=== PATIENT | female | born 1955 | race Caucasian/White ===

== ENCOUNTER 2016-08-01 16:05 | Inpatient (IN) | payer OTHER ==
[~2016-08-01] VITALS: Ht 162.6 cm; Wt 62.8 kg
[~2016-08-01 16:05] MED LIST: COQ-50CA2; LISI2.5T3 PO; LORA1TAB PO; METO25TA3 PO; OMEG600C2 PO; THIA100T PO; VENL75TA PO; VITA250L PO
[2016-08-01 16:08] VITALS: BP 161/72; PULSE 91; RESP 18; O2SAT 98
--- NOTE | 2016-08-01 16:20 | PD ---
HPI Chief Complaint: Abnormal Results Time Seen by Provider: 16:12 Travel History International Travel<30 days: No Contact w/Intl Traveler<30days: No Traveled to known affect area: No History of Present Illness HPI 61-year-old female came to the emergency room with history of abdominal pain, intractable vomiting since early this morning. Patient was drinking last night and had 3 large vodka drinks. After which she sustained a fall and head injury. Because of her symptoms in the morning she decided to go to the emergency room. She was at the [facility] emergency room where they did a CAT scan of her abdomen pelvis and head and found out that she had small bowel obstruction along with subdural hematoma. They spoke with the lease purchase driver as well as the neurosurgeon in this hospital who accepted the case and patient was transferred. Currently she has a nasogastric tube and she is awake and alert. She is answering questions appropriately. She gave me this history. She has come with the paperwork as well as the CD for the imaging studies. The ICU physician Dr. Finley is down here as well seeing the patient. Vital signs are stable otherwise. [facility] Past Medical History Narrative Medical List of her past medical history as reviewed from the nursing note. Social History Alcohol Use: Yes Tobacco Use: Yes Allergies-Medications (Allergen,Severity, Reaction): Coded Allergies: Epinephrine (Verified Adverse Reaction, Unknown, rapid heart, 08/01/16) Comments List of her allergies reviewed from the nursing note. Reported Meds & Prescriptions Reported Meds & Active Scripts Active Reported Effexor (Venlafaxine HCl) 75 Mg Tab 75 Mg PO Q12H Lisinopril 2.5 Mg Tab 2.5 Mg PO DAILY Metoprolol Tartrate 25 Mg Tab 25 Mg PO BID Narrative Medication List of her home medications reviewed from the nursing note. Review of Systems Except as stated in HPI: all other systems reviewed are Neg Physical Exam Narrative GENERAL: Awake, alert, anxious, moderate distress SKIN: Warm and dry. HEAD: Atraumatic. Normocephalic. EYES: Pupils equal and round. No scleral icterus. No injection or drainage. ENT: No nasal bleeding or discharge. Mucous membranes pink and moist. Nasogastric tube from the right nostril NECK: Trachea midline. No JVD. CARDIOVASCULAR: Regular rate and rhythm. No murmur appreciated. RESPIRATORY: No accessory muscle use. Clear to auscultation. Breath sounds equal bilaterally. GASTROINTESTINAL: Abdomen soft, non-tender, nondistended. Hepatic and splenic margins not palpable. MUSCULOSKELETAL: No obvious deformities. No clubbing. No cyanosis. No edema. NEUROLOGICAL: Awake and alert. No obvious cranial nerve deficits. Motor grossly within normal limits. Normal speech. PSYCHIATRIC: Appropriate mood and affect; insight and judgment normal. Data Data Last Documented VS Vital Signs Date Time Temp Pulse Resp B/P Pulse Ox O2 Delivery O2 Flow Rate FiO2 08/01/16 16:08 91 18 161/72 98 Orders Complete Blood Count With Diff (08/01/16 16:21) Comprehensive Metabolic Panel (08/01/16 16:21) Prothrombin Time / Inr (Pt) (08/01/16 16:21) Chest, Single Ap (08/01/16 ) Ct Brain W/O Iv Contrast(Rout) (08/01/16 ) Admit Order (Ed Use Only) (08/01/16 16:23) MDM Medical Decision Making Medical Screen Exam Complete: Yes Emergency Medical Condition: Yes Medical Record Reviewed: Yes Differential Diagnosis Small bowel obstruction, subdural hematoma Narrative Course 4:17 PM patient will be admitted to the ICU. Dr. Finley is here seeing the patient. I just spoke with the neurosurgeon to let her know patient is arrived. Patient will be admitted to ICU. I will order another set of blood test for her since one was done at 5:45 AM. Procedures EKG Prior to Arrival: No Physician Communication Physician Communication Dr. Finley, Dr. Watson Diagnosis Primary Impression: Small bowel obstruction Additional Impressions: Subdural hematoma Fall Qualified Code: W19.XXXA - Fall, initial encounter Head injury Qualified Code: S09.90XA - Head injury, initial encounter Admitting Information Admitting Physician Requests: Admit Scripts Levetiracetam (Keppra)500 Mg Umh610 Mg PO Q12HR PRN (seizure prophylaxis) #60 TAB Ref 6 Prov:Marcell Watson 08/03/16 Yanelis Celaya MD Aug 01, 2016 16:20
[2016-08-01] MEDS ORDERED: VENL75TA PO (16:21)
[2016-08-01] MEDS ORDERED: LISI2.5T3 PO (16:21)
[2016-08-01] MEDS ORDERED: METO25TA3 PO (16:21)
[2016-08-01] MEDS ORDERED: ONDANSETRON HCL 4 MG/2 ML VIAL IV PRN (16:30)
[2016-08-01] MEDS ORDERED: MAGNESIUM SULFATE INJ 4 GM in SODIUM CHLORIDE 0.9% INJ 92 ML IV PRN (16:30)
[2016-08-01] MEDS ORDERED: DEXTROSE 50% IN WATER 50 ML VIAL(D50) IV PUSH PRN (16:30)
[2016-08-01] MEDS ORDERED: POTASSIUM PHOSPHATE MONOBASIC 500 MG TAB PO PRN (16:30)
[2016-08-01] MEDS ORDERED: MISCELLANEOUS NURSING INFORMATION XX SCH (16:30)
[2016-08-01] MEDS ORDERED: LORazepam 2 MG/ML VIAL IV PRN (16:30)
[2016-08-01] MEDS ORDERED: POTASSIUM CL 40 MEQ/30 ML LIQ UDC PO/TUBE PRN ×2 (16:30)
[2016-08-01] MEDS ORDERED: POTASSIUM CHLOR 20 MEQ PREMIX 100 ML IV PRN ×2 (16:30)
[2016-08-01] MEDS ORDERED: RESP: ALBUTEROL 2.5 MG/IPRATROPIUM 0.5 MG NEB (PRN) INH (16:30)
[2016-08-01] MEDS ORDERED: POTASSIUM PHOSPHATE INJ 30 MMOL in SODIUM CHLOR 0.9% 250 ML INJ 250 ML IV PRN (16:30)
[2016-08-01] MEDS ORDERED: MAGNESIUM OXIDE 400 MG TAB PO PRN (16:30)
[2016-08-01] MEDS ORDERED: HYDROmorphone HCL PF 1 MG/ML VIAL IV PRN (16:30)
[2016-08-01] MEDS ORDERED: CHLORHEXIDINE GLUCONATE 2 % 1 PACK (2 CLOTHS) TOP PRN (16:30)
[2016-08-01] MEDS ORDERED: SODIUM PHOSPHATE INJ 30 MMOL in SODIUM CHLOR 0.9% 250 ML INJ 240 ML IV PRN (16:30)
[2016-08-01] MEDS ORDERED: MAGNESIUM SULFATE INJ 2 GM in SODIUM CHLORIDE 0.9% INJ 96 ML IV PRN (16:30)
[2016-08-01] MEDS ORDERED: POTASSIUM PHOSPHATE MONOBASIC 500 MG TAB PO/TUBE PRN (16:30)
[2016-08-01] MEDS ORDERED: POTASSIUM CHLOR 40 MEQ PREMIX 100 ML IV PRN ×2 (16:30)
[2016-08-01] MEDS ORDERED: SODIUM CHLORIDE 0.9% FLUSH 5 ML FLUSH IV FLUSH PRN (16:30)
[2016-08-01 16:45] LABS: AUTOMATED NEUTROPHIL # 7.4 TH/MM3 (1.8-7.7); BASOPHIL % 0.3 % (0.0-2.0); HEMATOCRIT 36.5 % (35.0-46.0); LYMPH % 8.8 % (9.0-44.0); LYMPHOCYTE # 0.8 TH/MM3 (1.0-4.8); MEAN CELL VOLUME 103.7 FL (80.0-100.0); MEAN CORPUSCULAR HGB CONC 33.8 % (32.0-36.0); MONO % 5.6 % (0.0-8.0); NEUT % 85.3 % (16.0-70.0); PLATELET COUNT 135 TH/MM3 (150-450); RED BLOOD COUNT 3.52 MIL/MM3 (4.00-5.30); RED CELL DISTRIBUTION WIDTH 13.7 % (11.6-17.2); WHITE BLOOD COUNT 8.7 TH/MM3 (4.0-11.0)
[2016-08-01 16:56] LABS: HEMO FLAGS AUTO DIFF
[2016-08-01 17:02] LABS: INTERNATIONAL NORMALIZED RATIO 0.9 RATIO; PROTHROMBIN TIME - PATIENT 10.1 SEC (9.8-11.6)
--- NOTE | 2016-08-01 17:10 | HHI.HP ---
HPI Service Critical Care Medicine Primary Care Physician Unknown Admission Diagnosis small bowel obstruction, subdural hematoma Diagnosis: Chief Complaint: abdominal pain Travel History International Travel<30 Days: No Contact w/Intl Traveler <30 Da: No Traveled to Known Affected Are: No History of Present Illness This is a 61-year-old female with history of multiple abdominal surgeries as well as alcohol abuse who presents to an outside hospital with complaints of abdominal pain. She states that she had at least 3 large vodka drinks last night. She does remember hitting her head. When she woke up she drank some coffee and then had sudden onset nausea, vomiting, abdominal pain. She presented the emergency department where they noticed that she had a large scalp hematoma on the posterior side of her head. This prompted a noncontrasted CT scan of the head which demonstrated 11 mm left subdural hematoma without evidence of midline shift. In addition to this, CT abdomen and pelvis demonstrated dilated loops of small bowel with a noticeable transition point in the left upper quadrant suggestive of small bowel obstruction. She was emergently transferred to [facility] emergency Department for higher level care. I evaluate the patient immediately upon arrival to the emergency department. To me, she endorses mild abdominal pain and nausea. Denies chest pain, shortness of breath, fever, chills. She actually denies headache at this point. Denies blurred vision, vision changes. Denies ever losing consciousness last night. Does state that she had at least 3 drinks yesterday. Her EtOH level on arrival at outside hospitals was 211. She denies blood thinners. She has a history of A. fib status post ablation. She takes metoprolol for this. Critical care medicine was consulted to evaluate and manage her subdural hematoma and small bowel suction. I have discussed case with Dr. Watson and Dr. Albarado. Plan at this time is for conservative management. Review of Systems Constitutional: DENIES: Diaphoretic episodes, Fatigue, Fever, Chills, Dizziness Ears, nose, mouth, throat: DENIES: Ear Pain, Running Nose, Epistaxis Respiratory: DENIES: Cough, Wheezing, Hemoptysis, Sputum production, Shortness of breath Cardiovascular: DENIES: Chest pain, Palpitations, Syncope Gastrointestinal: COMPLAINS OF: Abdominal pain, Nausea, Vomiting, DENIES: Black stools, Bloody stools, Constipation, Diarrhea Neurologic: DENIES: Headache, Localized weakness Psychiatric: DENIES: Confusion Past Family Social History Allergies: Coded Allergies: Epinephrine (Verified Adverse Reaction, Unknown, rapid heart, 08/01/16) Past Medical History Atrial fibrillation Renal artery aneurysm Alcohol abuse Past Surgical History Appendectomy delivery Exploratory laparotomy with resection of renal artery aneurysm Reported Medications Metoprolol Does not take anticoagulation medication Active Ordered Medications See MAR Family History Reviewed and found to be noncontributory to the patient's acute illness Social History Episodically heavy drinker. At least 3 large drinks nightly when she is drinking Never smoked Denies drugs of abuse. Physical Exam Vital Signs Vital Signs Date Time Temp Pulse Resp B/P Pulse Ox O2 Delivery O2 Flow Rate FiO2 08/01/16 16:08 91 18 161/72 98 Physical Exam GENERAL: Middle-aged female, lying in bed, oriented 3 HEENT: Pupils 2 mm, equal, conjugate, round, reactive. Mucous membranes are dry. There is dried blood at the occiput. NECK: Trachea is midline. There is no JVD. NG tube in place CHEST: Equal chest rise. Clear to auscultation bilaterally. CARDIOVASCULAR: Normal rate, regular rhythm. No appreciable murmurs. ABDOMEN: Soft, mildly tender to palpation. Mildly distended. No guarding, rebound. MUSCULOSKELETAL: No peripheral edema. Distal pulses 2+. NEUROLOGICAL: RASS 0. GCS 15. CAM -. Cranial nerves II through XII grossly intact. Musculoskeletal strength 5 out of 5 bilateral upper and lower extremities. Sensation grossly intact. No gross focal motor or sensory deficits. Laboratory Outside hospital lab values are notable for an INR of 1, platelet of 147 Assessment and Plan Assessment and Plan Assessment: This is a 61-year-old female with history of alcohol abuse who presents after a fall with her chief complaint of abdominal pain. She was found to have a small bowel obstruction as well as a left subdural hematoma without evidence of midline shift. She is neurologically intact. I agree with admission to the ICU for close monitoring. Clearly both problems could become easily life-threatening, and the combination of these problems if worsening could be catastrophic. For now we will admit to the ICU, with every hour neuro checks. We will repeat her CT head to eval for interval change since the initial CT scan was done at 8 AM this morning. Active problems: Acute Left subdural hematoma Small bowel obstruction Plan: Every hour neuro checks Interval head CT Holding pharmacologic DVT prophylaxis Hold long-acting sedating meds Dilaudid 0.5 IV for pain when necessary Dr. Watson neurosurgery following Strict nothing by mouth NG tube to low intermittent wall suction Maintenance fluids normal saline at 84 cc an hour General surgery, Dr. Albarado following Daily CBC, BMP Hold home meds by mouth. Metoprolol 5 g IV every 6 hours scheduled Protonix for GI prophylaxis Distal: Admit to the ICU. She remains critically ill with high concern for acute decompensation This patient remains critically ill with one or more organ systems which are or may become a threat to life. I have spent in excess of 44 minutes discontinuously in the care and management of this patient. This time is exclusive of procedures, and includes, but is not limited to, evaluation of the patient, review of the medical record, discussions with family, consultants, nursing staff, or respiratory therapy, and documentation in the medical record. Code Status Full Code Discussed Condition With Dr. Watson, Tigre Rosales MD Aug 01, 2016 17:10
--- NOTE | 2016-08-01 17:25 | RADRPT ---
EXAM DATE/TIME: 08/01/2016 16:33 [facility] COMPARISON: No previous studies available for comparison. INDICATIONS : Weakness. NG tube placement. MEDICAL HISTORY : None. SURGICAL HISTORY : None. ENCOUNTER: Initial ACUITY: 1 day PAIN SCORE: 4/10 LOCATION: Bilateral chest FINDINGS: A single view of the chest demonstrates the lungs to be symmetrically aerated without evidence of mas s, infiltrate or effusion. The cardiomediastinal contours are unremarkable. Osseous structures are intact. CONCLUSION: 1. No active disease. NG coiled in stomach. Antonino Triplett MD on August 01, 2016 at 17:24 Board Certified Radiologist. This report was verified electronically.
[2016-08-01 17:32] LABS: PLATELET ESTIMATE SMEAR NORMAL (NORMAL); PLATELET MORPHOLOGY NORMAL (NORMAL); SCAN/DIFF AUTO DIFF CONFIRMED
--- NOTE | 2016-08-01 17:33 | RADRPT ---
EXAM DATE/TIME: 08/01/2016 17:19 [facility] COMPARISON: No previous studies available for comparison. INDICATIONS : Subdural hematoma seen on prior study at [facility]; evaluate for interval change. RADIATION DOSE: 56.35 CTDIvol (mGy) MEDICAL HISTORY : Hypertension. SURGICAL HISTORY : Cardiac ablation. ENCOUNTER: Initial ACUITY: 1 day PAIN SCALE: 4/10 LOCATION: cranial TECHNIQUE: Multiple contiguous axial images were obtained of the head. Using automated exposure control and adj ustment of the mA and/or kV according to patient size, radiation dose was kept as low as reasonably a chievable to obtain optimal diagnostic quality images. FINDINGS: Prior studies not available. There is a 12 mm subdural hematoma in the left parietal region. There is also a small amount of subdural hemorrhage in the interhemispheric region and extending over the lef t tentorium. There is some localized effacement of sulci. No significant midline shift. No hydrocepha natasha. No recent infarction identified. CONCLUSION: 1. Left parietal subdural hematoma measuring up to 12 mm in thickness with local effacement of the hoyos lci. No significant midline shift. Trace hemorrhage in the interhemispheric fissure and left tentoria l region. Prior study not available. Antonino Triplett MD on August 01, 2016 at 17:29 Board Certified Radiologist. This report was verified electronically.
[2016-08-01 17:45] VITALS: PULSE 85
[2016-08-01] MEDS: METOPROLOL TARTRATE 5 MG/5 ML VIAL IV PUSH SCH ×2 (17:52→23:51)
[2016-08-01 18:00] VITALS: BP 159/85; PULSE 85; RESP 17; TEMP 97.8; O2SAT 96
[2016-08-01] MEDS: INSULIN NovoLIN REGULAR SUPPLEMENTAL SCALE SQ SCH ×2 (18:00→23:51)
[2016-08-01] MEDS: SODIUM CHLOR 0.9% 1000 ML INJ 1,000 ML IV SCH (18:05)
--- NOTE | 2016-08-01 18:17 | PD.CONS ---
HPI Service Neurosurgery Consult Requested By Mapping Analyst Reason for Consult Left parietal acute SDH Primary Care Physician Unknown History of Present Illness 61 yr old lady fell backwards yesterday while walking her dogs and hit the back of her head. She had several cocktails and might have been unsteady. She denies LOC but she had some pain in the back of the head. She presented today to the ED in [place] with abdominal pain. A ct of the abdomen showed a small bowel obstruction. The CT of the head showed an acute small SDH. She is alert and at her neurologic baseline. GCS is 15 Review of Systems Constitutional: DENIES: Diaphoretic episodes, Fatigue, Fever, Weight gain, Weight loss, Chills, Dizziness, Change in appetite, Night Sweats Endocrine: DENIES: Abnorml menstrual pattern, Heat/cold intolerance, Polydipsia , Polyuria, Polyphagia Eyes: DENIES: Blurred vision, Diplopia, Eye inflammation, Eye pain, Vision loss , Photosensitivity, Double Vision Ears, nose, mouth, throat: DENIES: Tinnitus, Hearing loss, Vertigo, Nasal discharge, Oral lesions, Throat pain, Hoarseness, Ear Pain, Running Nose, Epistaxis, Sinus Pain, Toothache, Odynophagia Respiratory: DENIES: Apneas, Cough, Snoring, Wheezing, Hemoptysis, Sputum production, Shortness of breath Cardiovascular: DENIES: Chest pain, Palpitations, Syncope, Dyspnea on Exertion , PND, Lower Extremity Edema, Orthopnea, Claudication Gastrointestinal: COMPLAINS OF: Abdominal pain Genitourinary: DENIES: Abnormal vaginal bleeding, Dysmenorrhea, Dyspareunia, Sexual dysfunction, Urinary frequency, Urinary incontinence, Urgency, Hematuria , Dysuria, Nocturia, Vaginal discharge Musculoskeletal: DENIES: Joint pain, Muscle aches, Stiffness, Joint Swelling, Back pain, Neck pain Integumentary: DENIES: Abnormal pigmentation, Pruritus, Rash, Nail changes, Breast masses, Breast skin changes, Nipple discharge Hematologic/lymphatic: COMPLAINS OF: Bruising Immunologic/allergic: DENIES: Eczema, Urticaria Neurologic: DENIES: Abnormal gait, Headache, Localized weakness, Paresthesias, Seizures, Speech Problems, Tremor, Poor Balance Psychiatric: COMPLAINS OF: Depression Past Family Social History Allergies: Coded Allergies: Epinephrine (Verified Adverse Reaction, Unknown, rapid heart, 08/01/16) Past Medical History HTN 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 , responded well to effexor Renal art aneurysm, bled in 2013 and was repaired in [place] Past Surgical History Abdominal artery repair Reported Medications Reported Meds & Active Scripts Active Reported Effexor (Venlafaxine HCl) 75 Mg Tab 75 Mg PO Q12H Lisinopril 2.5 Mg Tab 2.5 Mg PO DAILY Metoprolol Tartrate 25 Mg Tab 25 Mg PO BID Family History HTN Social History , 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 Pupils 2mm equal, face symmetric, speech fluent, NG in place No pronator drift, motor 5/5 in both upper extremities and lower extremities, no dysmetria, no tone abnormality Reflexes are normal in the bic/tri/patella, no Mcrae sign, no Babinski Laboratory Laboratory Tests Test 08/01/16 16:26 White Blood Count 8.7 Red Blood Count 3.52 Hemoglobin 12.3 Hematocrit 36.5 Mean Corpuscular Volume 103.7 Mean Corpuscular Hemoglobin 35.0 Mean Corpuscular Hemoglobin 33.8 Concent Red Cell Distribution Width 13.7 Platelet Count 135 Mean Platelet Volume 9.8 Neutrophils (%) (Auto) 85.3 Lymphocytes (%) (Auto) 8.8 Monocytes (%) (Auto) 5.6 Eosinophils (%) (Auto) 0.0 Basophils (%) (Auto) 0.3 Neutrophils # (Auto) 7.4 Lymphocytes # (Auto) 0.8 Monocytes # (Auto) 0.5 Eosinophils # (Auto) 0.0 Basophils # (Auto) 0.0 CBC Comment AUTO DIFF Differential Comment AUTO DIFF CONFIRMED Platelet Estimate NORMAL Platelet Morphology Comment NORMAL Prothrombin Time 10.1 Prothromb Time International 0.9 Ratio Result Diagram: 08/01/16 1626 Imaging Last Impressions Head CT 08/01/16 0000 Signed Impressions: Service Date/Time: Monday, August 01, 2016 17:19 - CONCLUSION: 1. Left parietal subdural hematoma measuring up to 12 mm in thickness with local effacement of the sulci. No significant midline shift. Trace hemorrhage in the interhemispheric fissure and left tentorial region. Prior study not available. Antonino Triplett MD Chest X-Ray 08/01/16 0000 Signed Impressions: Service Date/Time: Monday, August 01, 2016 16:33 - CONCLUSION: 1. No active disease. NG coiled in stomach. Antonino Triplett MD Assessment and Plan Diagnosis: (1) Subdural hematoma Plan: Acute small extra axial collection in the parietal region, at most 13 mm with local mass effect and extension along the falx. Seizure prophylaxis, dvt prophylaxis and pud prophylaxis is per ICU protocol. We will repeat the head CT in the am and follow her radiologic and clinical exam. ICD Code: I62.00 Marcell Watson Aug 01, 2016 18:17
[2016-08-01] MEDS: levETIRAcetam INJ 500 MG in SODIUM CHLORIDE 0.9% INJ 100 ML IV SCH (19:45)
[2016-08-01] MEDS: SODIUM CHLORIDE 0.9% FLUSH 5 ML FLUSH IV FLUSH SCH (19:46)
[2016-08-01] MEDS: hydrALAZINE HCL 20 MG/ML VIAL IV PUSH SCH ×2 (19:46→22:20)
[2016-08-01 20:00] VITALS: BP 165/57; PULSE 88; PULSE 95; RESP 19; TEMP 97.8; O2SAT 97
[2016-08-02] VITALS (9 sets, daily range): BP systolic 117–160; BP diastolic 57–77; PULSE 83–100; RESP 16–24; TEMP 97.6–99.8; O2SAT 96–100
[2016-08-02 00:20] LABS: ALKALINE PHOSPHATASE 73 U/L (45-117); TOTAL BILIRUBIN ADULT 0.8 MG/DL (0.2-1.0)
[2016-08-02 00:35] LABS: ALT (GPT) 34 U/L (10-53); ANION GAP 11 MEQ/L (5-15); AST (GOT) 32 U/L (15-37); BICARBONATE 22.2 MEQ/L (21.0-32.0); BLOOD UREA NITROGEN 15 MG/DL (7-18); CHLORIDE 112 MEQ/L (98-107); GLOMERULAR FILTRATION RATE 85 ML/MIN (>89); POTASSIUM 4.5 MEQ/L (3.5-5.1); SODIUM (NA) 145 MEQ/L (136-145)
[2016-08-02] MEDS: hydrALAZINE HCL 20 MG/ML VIAL IV PUSH SCH ×4 (01:58→13:41)
[2016-08-02] MEDS: CHLORHEXIDINE GLUCONATE 2 % 1 PACK (2 CLOTHS) TOP SCH (03:14)
[2016-08-02] MEDS: METOPROLOL TARTRATE 5 MG/5 ML VIAL IV PUSH SCH ×2 (03:59→12:03)
[2016-08-02] MEDS: INSULIN NovoLIN REGULAR SUPPLEMENTAL SCALE SQ SCH ×2 (04:26→12:00)
[2016-08-02] MEDS: SODIUM CHLOR 0.9% 1000 ML INJ 1,000 ML IV SCH ×2 (04:55→16:27)
--- NOTE | 2016-08-02 05:11 | RADRPT ---
EXAM DATE/TIME: 08/02/2016 04:45 [facility] COMPARISON: CT BRAIN W/O CONTRAST, August 01, 2016, 17:19. INDICATIONS : Follow up subdural hematoma. RADIATION DOSE: 34.32 CTDIvol (mGy) MEDICAL HISTORY : Hypertension. Cardiovascular disease SURGICAL HISTORY : Cardiac ablation. ENCOUNTER: Subsequent ACUITY: 1 day PAIN SCALE: 3/10 LOCATION: cranial TECHNIQUE: Multiple contiguous axial images were obtained of the head. Using automated exposure control and adj ustment of the mA and/or kV according to patient size, radiation dose was kept as low as reasonably a chievable to obtain optimal diagnostic quality images. FINDINGS: Left posterior parietal subdural hematoma again noted and measures about 12 mm in maximal thickness a nd not significantly changed. Some of the blood extends in between the leaves of the posterior falx a nd left side of the tentorium, also unchanged. No no blood. No midline shift. No mass lesion. No evidence of an acute ischemic event. Skull is intact. CONCLUSION: Stable CT appearance. Small left posterior parietal subdural hemorrhage including in between the leav es of the posterior falx and left tentorium unchanged. No midline shift. Bernardo Kiran MD on August 02, 2016 at 5:06 Board Certified Radiologist. This report was verified electronically.
[2016-08-02 05:31] LABS: MEAN CELL VOLUME 103.8 FL (80.0-100.0); MEAN CORPUSCULAR HEMOGLOBIN 35.4 PG (27.0-34.0); MEAN CORPUSCULAR HGB CONC 34.1 % (32.0-36.0); PLATELET COUNT 90 TH/MM3 (150-450); RED BLOOD COUNT 3.27 MIL/MM3 (4.00-5.30); RED CELL DISTRIBUTION WIDTH 13.1 % (11.6-17.2); WHITE BLOOD COUNT 7.5 TH/MM3 (4.0-11.0)
[2016-08-02 05:39] LABS: REVIEW FLAG FINAL
[2016-08-02 05:50] LABS: BICARBONATE 24.1 MEQ/L (21.0-32.0)
--- NOTE | 2016-08-02 06:02 | RADRPT ---
EXAM DATE/TIME: 08/02/2016 04:40 [facility] COMPARISON: No previous studies available for comparison. INDICATIONS : Distention. MEDICAL HISTORY : Renal artery aneurysm. SURGICAL HISTORY : Appendectomy. section. Resection of renal artery aneurism. ENCOUNTER: Initial ACUITY: 1 day PAIN SCORE: Non-responsive. LOCATION: abdomen, all quadrants. FINDINGS: Supine and upright views of the abdomen were performed. The abdominal bowel gas pattern is normal. No air fluid levels are seen. No abnormal masses, calcifications, or organomegaly is seen. The visu alized lower lungs are clear. No evidence of free intraperitoneal gas. The osseous structures are u nremarkable. Nasogastric tube has its tip in the upper stomach. The sidehole is in the lower esophagus. CONCLUSION: Benign-appearing abdomen. Nasogastric tube tip is in the upper stomach, sidehole above the GE junctio n. Bernardo Kiran MD on August 02, 2016 at 6:00 Board Certified Radiologist. This report was verified electronically.
[2016-08-02] MEDS: SODIUM CHLORIDE 0.9% FLUSH 5 ML FLUSH IV FLUSH SCH ×2 (08:54→22:59)
[2016-08-02] MEDS: levETIRAcetam INJ 500 MG in SODIUM CHLORIDE 0.9% INJ 100 ML IV SCH ×2 (08:54→22:58)
[2016-08-02] MEDS: PANTOPRAZOLE SODIUM 40 MG VIAL IV SCH (08:54)
--- NOTE | 2016-08-02 09:06 | MB ---
cc: GAGANDEEP WALDROP DATE OF CONSULTATION: 08/01/2016 HISTORY OF PRESENT ILLNESS This is a 61-year-old female who was transferred from a outside hospital secondary to closed head injury and bowel obstruction. She presented to that facility with complaint of abdominal pain with nausea. She has a known history of excessive alcohol use and by reports she fell which prompted the workup of a head CT. She states her abdominal pain is now better. She has a headache. She denies vomiting. Her last bowel movement was on the day of presentation, she states it was a dig one but has not passed gas since that time. PAST MEDICAL HISTORY Past medical history significant for: 1. Renal artery aneurysm. 2. Alcohol abuse. 3. Atrial fibrillation. PAST SURGICAL HISTORY 1. Laparotomy for management of renal artery aneurysm. 2. section. 3. Appendectomy. MEDICATIONS She is on medication at home that includes Metoprolol. SOCIAL HISTORY She does not smoke. She does drink alcohol. FAMILY HISTORY Noncontributory. REVIEW OF SYSTEMS Review of systems significant for above. All other 10-point review negative. PHYSICAL EXAMINATION GENERAL: On exam she is lying in bed, in no acute distress. HEENT: The pupils are equal and active. Trachea is midline. RESPIRATORY: Respirations clear. CARDIOVASCULAR: Regular. GASTROINTESTINAL: Soft, flat, mild left lower quadrant tenderness. Well-healed midline scar. MUSCULOSKELETAL: No deformities. NEUROLOGIC: Nonfocal. LABORATORY DATA The patient's hemoglobin was 8.7. ASSESSMENT This is a patient who recently fell with subdural hemorrhage with questionable partial obstruction. Will leave the NG tube in place presently, manage conservatively, bowel rest. Repeat exam in a.m. as well as abdominal x-ray. Gagandeep Waldrop MD JS/TLL /8:06 AM /8:55 AM
--- NOTE | 2016-08-02 10:24 | HHI.NSPN ---
Subjective History 61 yr old presented to with a bowel obstruction but was found to have a left acute parietal SDH. The bleed is stable on day 2 after the fall. She is a GCS 15. Vitals . Vital Signs Date Time Temp Pulse Resp B/P Pulse Ox O2 Delivery O2 Flow Rate FiO2 08/02/16 04:00 98.3 89 21 122/63 99 08/02/16 04:00 89 08/02/16 00:00 100 08/02/16 00:00 98.1 100 21 122/60 96 08/01/16 20:00 95 08/01/16 20:00 97.8 88 19 165/57 97 08/01/16 19:00 97 Room Air 08/01/16 18:00 97.8 85 17 159/85 96 08/01/16 18:00 85 08/01/16 18:00 96 Room Air 08/01/16 17:45 08/01/16 16:08 91 18 161/72 98 08/01/16 08/01/16 08/02/16 15:00 23:00 07:00 Intake Total 170 ml 450 ml Output Total 200 ml 150 ml Balance -30 ml 300 ml Physical Exam Eyes Eyes: Pupils Equal Neuro Pupils: Reactive Bilaterally Idris Coma Scale Best Eye Openin - Spontaneous Best Verbal: 5 - Oriented Best Motor: 6 - Obeys Cardiac Cardiac: Regular Rate & Rhythm Respiratory Respiratory: CTA Gastrointestinal Gastrointestinal: Nontender Musculoskeletal Musculoskeletal: Moves all extrem with 5/5 strength Extremities Upper Extremities Deltoid Bicep Tricep HI W. Ext Right Left Lower Extremeties Ilio Quad Plantar Dorsi EHL Right Left Extremities Edema: SCDs Objective Labs Laboratory Tests 08/01/16 16:26 08/01/16 23:20 08/02/16 03:37 Laboratory Tests Test 08/01/16 08/02/16 23:20 03:37 Sodium Level 145 MEQ/L 145 MEQ/L Potassium Level 4.5 MEQ/L 4.0 MEQ/L Chloride Level 112 MEQ/L 112 MEQ/L Carbon Dioxide Level 22.2 MEQ/L 24.1 MEQ/L Anion Gap 11 MEQ/L 9 MEQ/L Blood Urea Nitrogen 15 MG/DL 15 MG/DL Creatinine 0.70 MG/DL 0.63 MG/DL Estimat Glomerular Filtration 85 ML/MIN 96 ML/MIN Rate Random Glucose 94 MG/DL 94 MG/DL Calcium Level 7.8 MG/DL 7.8 MG/DL Total Bilirubin 0.8 MG/DL Aspartate Amino Transf 32 U/L (AST/SGOT) Alanine Aminotransferase 34 U/L (ALT/SGPT) Alkaline Phosphatase 73 U/L Total Protein 6.3 GM/DL Albumin 3.1 GM/DL Imaging Remarks Last Impressions Head CT 08/02/16 0600 Signed Impressions: Service Date/Time: Tuesday, August 02, 2016 04:45 - CONCLUSION: Stable CT appearance. Small left posterior parietal subdural hemorrhage including in between the leaves of the posterior falx and left tentorium unchanged. No midline shift. Bernardo Kiran MD Abdomen X-Ray 08/02/16 0600 Signed Impressions: Service Date/Time: Tuesday, August 02, 2016 04:40 - CONCLUSION: Benign-appearing abdomen. Nasogastric tube tip is in the upper stomach, sidehole above the GE junction. Bernardo Kiran MD Chest X-Ray 08/01/16 0000 Signed Impressions: Service Date/Time: Monday, August 01, 2016 16:33 - CONCLUSION: 1. No active disease. NG coiled in stomach. Antonino Triplett MD Assessment & Plan Diagnosis: (1) Subdural hematoma Plan: Acute small extra axial collection in the parietal region, at most 13 mm with local mass effect and extension along the falx. Seizure prophylaxis, dvt prophylaxis and pud prophylaxis is per ICU protocol. We will repeat the head CT in the am and follow her radiologic and clinical exam. 08/01/16 She is stable radiologically and clinically. OT/PT are ordered and she is transferring to the floor. Marcell Watson Aug 02, 2016 10:24
--- NOTE | 2016-08-02 11:22 | HHI.PR ---
Subjective Remarks passing gas no abdomen pain wants food. ambulating to BR Objective Vitals ngt oriented heart reg lung cta abd bs/nd ext no edema Vital Signs Date Time Temp Pulse Resp B/P Pulse Ox O2 Delivery O2 Flow Rate FiO2 08/02/16 04:00 98.3 89 21 122/63 99 08/02/16 04:00 89 08/02/16 00:00 100 08/02/16 00:00 98.1 100 21 122/60 96 08/01/16 20:00 95 08/01/16 20:00 97.8 88 19 165/57 97 08/01/16 19:00 97 Room Air 08/01/16 18:00 97.8 85 17 159/85 96 08/01/16 18:00 85 08/01/16 18:00 96 Room Air 08/01/16 17:45 08/01/16 16:08 91 18 161/72 98 08/01/16 08/01/16 08/02/16 15:00 23:00 07:00 Intake Total 170 ml 450 ml Output Total 200 ml 150 ml Balance -30 ml 300 ml Intake IV Total 170 ml 450 ml Output Gastric Drainage Total 200 ml 150 ml # Voids 2 Result Diagram: 08/02/16 0337 08/02/16 033 A/P Problem List: (1) Subdural hematoma Status: Acute Plan: Pt was drinking etoh. had fall. left sdh. noted to have p.sbo with transition point. could be adhesion dz. thrombocytopenia noted. could be etoh related or the acute bleed. today CT head shows stable sdh positive flatus discussed with gen surg d/c ngt advance diet. ambulate transfer to med/surg change to po meds. discussed etoh cessation. recheck plt. b12 level (2) Small bowel obstruction Status: Acute Plan: see above (3) Alcohol abuse, episodic Status: Acute Plan: see above (4) Afib Status: Resolved Plan: s/p ablation. on bb (5) HTN (hypertension) Status: Chronic Plan: resume home meds Broderick Anna MD Aug 02, 2016 11:22
--- NOTE | 2016-08-02 13:32 | HHI.PR ---
Subjective Subjective Notes pos flatus no bm no abd pain Objective Vitals/I&O Vital Signs Date Time Temp Pulse Resp B/P Pulse Ox O2 Delivery O2 Flow Rate FiO2 08/02/16 04:00 98.3 89 21 122/63 99 08/01/16 19:00 Room Air Labs Laboratory Tests Test 08/01/16 08/01/16 08/01/16 08/02/16 16:26 17:45 23:20 03:37 White Blood Count 8.7 7.5 Red Blood Count 3.52 3.27 Hemoglobin 12.3 11.6 Hematocrit 36.5 34.0 Mean Corpuscular Volume 103.7 103.8 Mean Corpuscular Hemoglobin 35.0 35.4 Mean Corpuscular Hemoglobin 33.8 34.1 Concent Red Cell Distribution Width 13.7 13.1 Platelet Count 135 90 Mean Platelet Volume 9.8 8.9 Neutrophils (%) (Auto) 85.3 Lymphocytes (%) (Auto) 8.8 Monocytes (%) (Auto) 5.6 Eosinophils (%) (Auto) 0.0 Basophils (%) (Auto) 0.3 Neutrophils # (Auto) 7.4 Lymphocytes # (Auto) 0.8 Monocytes # (Auto) 0.5 Eosinophils # (Auto) 0.0 Basophils # (Auto) 0.0 CBC Comment AUTO DIFF Differential Comment AUTO DIFF CONFIRMED Platelet Estimate NORMAL Platelet Morphology Comment NORMAL Prothrombin Time 10.1 Prothromb Time International 0.9 Ratio Nasal Screen MRSA (PCR) NEGATIVE Sodium Level 145 145 Potassium Level 4.5 4.0 Chloride Level 112 112 Carbon Dioxide Level 22.2 24.1 Anion Gap 11 9 Blood Urea Nitrogen 15 15 Creatinine 0.70 0.63 Estimat Glomerular Filtration 85 96 Rate Random Glucose 94 94 Calcium Level 7.8 7.8 Total Bilirubin 0.8 Aspartate Amino Transf 32 (AST/SGOT) Alanine Aminotransferase 34 (ALT/SGPT) Alkaline Phosphatase 73 Total Protein 6.3 Albumin 3.1 Radiology Last Impressions Head CT 08/02/16599 Signed Impressions: Service Date/Time: Tuesday, August 02, 2016 04:45 - CONCLUSION: Stable CT appearance. Small left posterior parietal subdural hemorrhage including in between the leaves of the posterior falx and left tentorium unchanged. No midline shift. Bernardo Kiran MD Abdomen X-Ray 2/12/17 0600 Signed Impressions: Service Date/Time: Tuesday, August 02, 2016 04:40 - CONCLUSION: Benign-appearing abdomen. Nasogastric tube tip is in the upper stomach, sidehole above the GE junction. Bernardo Kiran MD Chest X-Ray 08/01/16 0000 Signed Impressions: Service Date/Time: Monday, August 01, 2016 16:33 - CONCLUSION: 1. No active disease. NG coiled in stomach. Antonino Triplett MD Cardiovascular: Regular Lungs: Clear Abdomen: Non-tender A/P Assessment and Plan resolving psbo remove NGT full liquids if ayana advance to regular mobilize per Gagandeep Murphy MD Aug 02, 2016 13:32
[2016-08-02] MEDS ORDERED: cloNIDine HCL 0.1 MG TAB PO PRN (14:45)
[2016-08-02] MEDS ORDERED: ENALAPRILAT 1.25 MG/ML VIAL IV PUSH PRN (14:45)
[2016-08-02] MEDS ORDERED: PILL SPLITTER OTHER PRN (15:00)
[2016-08-02] MEDS: METOPROLOL TARTRATE 25 MG TAB PO SCH (22:58)
[2016-08-03] VITALS (9 sets, daily range): BP systolic 139–161; BP diastolic 79–86; PULSE 69–95; RESP 18–20; TEMP 97.9–98.7; O2SAT 95–100
[2016-08-03] MEDS: CHLORHEXIDINE GLUCONATE 2 % 1 PACK (2 CLOTHS) TOP SCH (04:00)
[2016-08-03] MEDS: SODIUM CHLOR 0.9% 1000 ML INJ 1,000 ML IV SCH (05:43)
[2016-08-03 07:33] LABS: AUTOMATED NEUTROPHIL # 3.3 TH/MM3 (1.8-7.7); BASOPHIL % 0.3 % (0.0-2.0); EOSINOPHIL # 0.1 TH/MM3 (0-0.4); EOSINOPHIL % 1.3 % (0.0-4.0); HEMATOCRIT 32.5 % (35.0-46.0); LYMPH % 19.9 % (9.0-44.0); LYMPHOCYTE # 0.9 TH/MM3 (1.0-4.8); MEAN CELL VOLUME 105.1 FL (80.0-100.0); MEAN CORPUSCULAR HEMOGLOBIN 35.1 PG (27.0-34.0); MEAN CORPUSCULAR HGB CONC 33.4 % (32.0-36.0); MONO % 9.8 % (0.0-8.0); NEUT % 68.7 % (16.0-70.0); PLATELET COUNT 71 TH/MM3 (150-450); RED CELL DISTRIBUTION WIDTH 12.8 % (11.6-17.2); WHITE BLOOD COUNT 4.8 TH/MM3 (4.0-11.0)
[2016-08-03 07:40] LABS: HEMO FLAGS AUTO DIFF
[2016-08-03 07:50] LABS: BICARBONATE 23.1 MEQ/L (21.0-32.0); POTASSIUM 3.7 MEQ/L (3.5-5.1)
[2016-08-03] MEDS: METOPROLOL TARTRATE 25 MG TAB PO SCH ×2 (09:03→22:51)
[2016-08-03] MEDS: levETIRAcetam 500 MG TAB PO SCH ×2 (09:13→22:51)
[2016-08-03] MEDS: SODIUM CHLORIDE 0.9% FLUSH 5 ML FLUSH IV FLUSH SCH ×2 (09:14→22:52)
[2016-08-03] MEDS: VENLAFAXINE HCL XR 75 MG CAP PO SCH (09:14)
[2016-08-03] MEDS: LISINOPRIL 5 MG TAB PO SCH (09:14)
[2016-08-03] MEDS: PANTOPRAZOLE SODIUM 40 MG VIAL IV SCH (09:15)
[2016-08-03 09:23] LABS: PLATELET ESTIMATE SMEAR LOW (NORMAL); PLATELET MORPHOLOGY NORMAL (NORMAL); SCAN/DIFF AUTO DIFF CONFIRMED
--- NOTE | 2016-08-03 11:16 | HHI.NSPN ---
History Chief Complaint: none Interval History 08/03/16 She is alert and awake. Her abdominal pain has resolved and she started to eat. She has some itching from the scalp abrasion but no headache or deficit Review of Systems General: Negative for: fever, chills, insomnia Respiratory: Negative for: shortness of breath, cough, sputum Cardiovascular: Negative for: chest pain, palpitations, orthopnea Gastrointestinal: Negative for: nausea, vomitting, diarrhea, constipation Exam Results Vital Signs Date Time Temp Pulse Resp B/P Pulse Ox O2 Delivery O2 Flow Rate FiO2 08/03/16 08:00 98.7 80 19 159/80 100 08/02/16 07:00 Room Air Intake and Output 08/02/16 08/02/16 08/03/16 08:00 16:00 00:00 Intake Total 450 ml 973 ml Output Total 150 ml 50 ml Balance 300 ml 923 ml Physical Examination Alert and oriented x 3, EOMI, speech fluent, affect normal, has some facial edema No pronator drift, moves with good balance and independence No sensory level, no spasticity, no vertigo with changes of position Lab, Micro, Other Results Laboratory Tests Test 08/03/16 06:54 White Blood Count 4.8 TH/MM3 Red Blood Count 3.10 MIL/MM3 Hemoglobin 10.9 GM/DL Hematocrit 32.5 % Mean Corpuscular Volume 105.1 FL Mean Corpuscular Hemoglobin 35.1 PG Mean Corpuscular Hemoglobin 33.4 % Concent Red Cell Distribution Width 12.8 % Platelet Count 71 TH/MM3 Mean Platelet Volume 9.4 FL Neutrophils (%) (Auto) 68.7 % Lymphocytes (%) (Auto) 19.9 % Monocytes (%) (Auto) 9.8 % Eosinophils (%) (Auto) 1.3 % Basophils (%) (Auto) 0.3 % Neutrophils # (Auto) 3.3 TH/MM3 Lymphocytes # (Auto) 0.9 TH/MM3 Monocytes # (Auto) 0.5 TH/MM3 Eosinophils # (Auto) 0.1 TH/MM3 Basophils # (Auto) 0.0 TH/MM3 CBC Comment AUTO DIFF Differential Comment AUTO DIFF CONFIRMED Platelet Estimate LOW Platelet Morphology Comment NORMAL Sodium Level 144 MEQ/L Potassium Level 3.7 MEQ/L Chloride Level 113 MEQ/L Carbon Dioxide Level 23.1 MEQ/L Anion Gap 8 MEQ/L Blood Urea Nitrogen 10 MG/DL Creatinine 0.68 MG/DL Estimat Glomerular Filtration 88 ML/MIN Rate Random Glucose 92 MG/DL Calcium Level 7.9 MG/DL Vitamin B12 Level 1291 PG/ML Medical Decision Making Impression and Plan Stable neurologically. Follow up in one week is requested with a head CT but evaluation of her low platelet count by her medical doctor is necessary prior to discharge. Total Minutes: 10 Marcell Watson Aug 03, 2016 11:16
[2016-08-03] MEDS ORDERED: LEVE500 PO (11:18)
--- NOTE | 2016-08-03 16:14 | HHI.PR ---
Subjective Remarks Pt with NO new complaints. Objective Vitals Vital Signs Date Time Temp Pulse Resp B/P Pulse Ox O2 Delivery O2 Flow Rate FiO2 08/03/16 15:50 97.9 69 18 145/79 97 08/03/16 12:25 97.9 74 20 161/84 100 08/03/16 12:00 74 08/03/16 08:00 72 08/03/16 08:00 98 Room Air 08/03/16 08:00 98.7 80 19 159/80 100 08/03/16 00:00 98.7 95 20 139/82 95 08/02/16 20:00 98.8 88 18 135/60 100 08/02/16 17:59 99.8 83 20 160/77 100 08/02/16 08/02/16 08/03/16 15:00 23:00 07:00 Intake Total 973 ml 920 ml Output Total 50 ml Balance 923 ml 920 ml Intake Oral 270 ml IV Total 703 ml 920 ml Output Gastric Drainage Total 50 ml # Voids 2 4 # Bowel Movements 0 Result Diagram: 08/03/16 0654 08/03/16 0654 Imaging Last Impressions Head CT 08/02/16 0600 Signed Impressions: Service Date/Time: Tuesday, August 02, 2016 04:45 - CONCLUSION: Stable CT appearance. Small left posterior parietal subdural hemorrhage including in between the leaves of the posterior falx and left tentorium unchanged. No midline shift. Bernardo Kiran MD Abdomen X-Ray 08/02/16 0600 Signed Impressions: Service Date/Time: Tuesday, August 02, 2016 04:40 - CONCLUSION: Benign-appearing abdomen. Nasogastric tube tip is in the upper stomach, sidehole above the GE junction. Bernardo Kiran MD Chest X-Ray 08/01/16 0000 Signed Impressions: Service Date/Time: Monday, August 01, 2016 16:33 - CONCLUSION: 1. No active disease. NG coiled in stomach. Antonino Triplett MD A/P Problem List: (1) Subdural hematoma Status: Acute Plan: - Pt was drinking etoh. had fall. left sdh. - CT (08/02/16) head shows stable sdh - NSX wrote for f/u in 1 week - keppra - worsening thrombocytopenia, likely d/t etoh - repeat CBC in AM (2) Thrombocytopenia Status: Acute Plan: - see above (3) Small bowel obstruction Status: Acute Plan: noted to have p.sbo with transition point. could be adhesion dz. - Resolved - pt is tolerating PO intake (4) Alcohol abuse, episodic Status: Acute Plan: see above (5) Afib Status: Resolved Plan: s/p ablation. - metoprolol (6) HTN (hypertension) Status: Chronic Plan: - lisinopril - metoprolol Problem Qualifiers (1) HTN (hypertension): Qualified Code: I10 - Essential hypertension Mumtaz Salcedo DO Aug 03, 2016 16:14
[2016-08-04] VITALS: BP 130/70; PULSE 88; RESP 20; TEMP 97.8; O2SAT 99
[2016-08-04 04:00] VITALS: BP 119/78; PULSE 70; RESP 16; TEMP 97.4; O2SAT 97
[2016-08-04] MEDS: CHLORHEXIDINE GLUCONATE 2 % 1 PACK (2 CLOTHS) TOP SCH (04:28)
[2016-08-04 06:10] VITALS: PULSE 73
[2016-08-04 08:14] VITALS: BP 148/85; PULSE 78; RESP 18; TEMP 98; O2SAT 99
[2016-08-04 08:49] LABS: AUTOMATED NEUTROPHIL # 2.5 TH/MM3 (1.8-7.7); BASOPHIL % 0.4 % (0.0-2.0); EOSINOPHIL # 0.2 TH/MM3 (0-0.4); EOSINOPHIL % 3.7 % (0.0-4.0); HEMATOCRIT 32.8 % (35.0-46.0); LYMPH % 25.9 % (9.0-44.0); LYMPHOCYTE # 1.1 TH/MM3 (1.0-4.8); MEAN CELL VOLUME 103.7 FL (80.0-100.0); MEAN CORPUSCULAR HEMOGLOBIN 36.1 PG (27.0-34.0); MEAN CORPUSCULAR HGB CONC 34.9 % (32.0-36.0); MONO % 12.8 % (0.0-8.0); NEUT % 57.2 % (16.0-70.0); PLATELET COUNT 89 TH/MM3 (150-450); RED BLOOD COUNT 3.17 MIL/MM3 (4.00-5.30); WHITE BLOOD COUNT 4.3 TH/MM3 (4.0-11.0)
[2016-08-04 08:54] LABS: HEMO FLAGS AUTO DIFF
[2016-08-04] MEDS: PANTOPRAZOLE SODIUM 40 MG VIAL IV SCH (09:00)
[2016-08-04] MEDS: SODIUM CHLORIDE 0.9% FLUSH 5 ML FLUSH IV FLUSH SCH (09:00)
[2016-08-04 09:11] LABS: BICARBONATE 25.1 MEQ/L (21.0-32.0); POTASSIUM 3.7 MEQ/L (3.5-5.1)
[2016-08-04 09:37] LABS: PLATELET ESTIMATE SMEAR LOW (NORMAL); PLATELET MORPHOLOGY NORMAL (NORMAL); SCAN/DIFF AUTO DIFF CONFIRMED
[2016-08-04] MEDS: levETIRAcetam 500 MG TAB PO SCH (10:33)
[2016-08-04] MEDS: METOPROLOL TARTRATE 25 MG TAB PO SCH (10:33)
[2016-08-04] MEDS: LISINOPRIL 5 MG TAB PO SCH (10:33)
[2016-08-04] MEDS: VENLAFAXINE HCL XR 75 MG CAP PO SCH (10:33)
--- NOTE | 2016-08-04 11:14 | HHI.NSPN ---
History Chief Complaint: none Interval History 08/04/16 She is alert and awake. Her abdominal pain has resolved and she is eating. She has no headache or deficit Review of Systems General: Negative for: fever, chills, insomnia Respiratory: Negative for: shortness of breath, cough, sputum Cardiovascular: Negative for: chest pain, palpitations, orthopnea Exam Results Vital Signs Date Time Temp Pulse Resp B/P Pulse Ox O2 Delivery O2 Flow Rate FiO2 08/04/16 08:14 98.0 78 18 148/85 99 08/03/16 08:00 Room Air Intake and Output 08/03/16 08/03/16 08/04/16 08:00 16:00 00:00 Intake Total 920 ml 550 ml Balance 920 ml 550 ml Physical Examination Alert and oriented x 3, EOMI, speech fluent, affect normal, has some facial edema No pronator drift, moves with good balance and independence No sensory level, no spasticity, no vertigo with changes of position Lab, Micro, Other Results Laboratory Tests Test 08/04/16 08/04/16 08:30 08:31 Sodium Level 142 MEQ/L Potassium Level 3.7 MEQ/L Chloride Level 111 MEQ/L Carbon Dioxide Level 25.1 MEQ/L Anion Gap 6 MEQ/L Blood Urea Nitrogen 8 MG/DL Creatinine 0.62 MG/DL Estimat Glomerular Filtration 98 ML/MIN Rate Random Glucose 85 MG/DL Calcium Level 8.1 MG/DL White Blood Count 4.3 TH/MM3 Red Blood Count 3.17 MIL/MM3 Hemoglobin 11.4 GM/DL Hematocrit 32.8 % Mean Corpuscular Volume 103.7 FL Mean Corpuscular Hemoglobin 36.1 PG Mean Corpuscular Hemoglobin 34.9 % Concent Red Cell Distribution Width 13.0 % Platelet Count 89 TH/MM3 Mean Platelet Volume 8.9 FL Neutrophils (%) (Auto) 57.2 % Lymphocytes (%) (Auto) 25.9 % Monocytes (%) (Auto) 12.8 % Eosinophils (%) (Auto) 3.7 % Basophils (%) (Auto) 0.4 % Neutrophils # (Auto) 2.5 TH/MM3 Lymphocytes # (Auto) 1.1 TH/MM3 Monocytes # (Auto) 0.5 TH/MM3 Eosinophils # (Auto) 0.2 TH/MM3 Basophils # (Auto) 0.0 TH/MM3 CBC Comment AUTO DIFF Differential Comment AUTO DIFF CONFIRMED Platelet Estimate LOW Platelet Morphology Comment NORMAL Medical Decision Making Impression and Plan Stable neurologically. Follow up in one week is requested with a head CT. Total Minutes: 10 Marcell Watson Aug 04, 2016 11:14
[2016-08-04 12:01] VITALS: BP 150/91; PULSE 81; RESP 18; TEMP 97.4; O2SAT 100
--- NOTE | 2016-08-04 15:05 | HHI.DS ---
Discharge Summary Admission Date Aug 01, 2016 at 16:24 Discharge Date: Aug 04, 2016 Admitting Diagnosis small bowel obstruction, subdural hematoma (1) Subdural hematoma Diagnosis: Principal (2) Thrombocytopenia Diagnosis: Principal (3) Small bowel obstruction Diagnosis: Principal (4) Alcohol abuse, episodic Diagnosis: Principal (5) Afib Diagnosis: Secondary (6) HTN (hypertension) Diagnosis: Secondary Consultants Dr. Gagandeep Redman, General Surgery Dr. Watson, Neurosugeon Brief History This is a 61-year-old female with history of multiple abdominal surgeries as well as alcohol abuse who presents to an outside hospital with complaints of abdominal pain. She states that she had at least 3 large vodka drinks last night. She does remember hitting her head. When she woke up she drank some coffee and then had sudden onset nausea, vomiting, abdominal pain. She presented the emergency department where they noticed that she had a large scalp hematoma on the posterior side of her head. This prompted a noncontrasted CT scan of the head which demonstrated 11 mm left subdural hematoma without evidence of midline shift. In addition to this, CT abdomen and pelvis demonstrated dilated loops of small bowel with a noticeable transition point in the left upper quadrant suggestive of small bowel obstruction. She was emergently transferred to [facility] emergency Department for higher level care. I evaluate the patient immediately upon arrival to the emergency department. To me, she endorses mild abdominal pain and nausea. Denies chest pain, shortness of breath, fever, chills. She actually denies headache at this point. Denies blurred vision, vision changes. Denies ever losing consciousness last night. Does state that she had at least 3 drinks yesterday. Her EtOH level on arrival at outside hospitals was 211. She denies blood thinners. She has a history of A. fib status post ablation. She takes metoprolol for this. Critical care medicine was consulted to evaluate and manage her subdural hematoma and small bowel suction. I have discussed case with Dr. Watson and Dr. Albarado. Plan at this time is for conservative management. CBC/BMP: 08/04/16 0831 08/04/16 0830 Significant Findings Laboratory Tests Test 08/01/16 08/01/16 08/02/16 08/03/16 16:26 23:20 03:37 06:54 Red Blood Count 3.52 MIL/MM3 3.27 MIL/MM3 3.10 MIL/MM3 (4.00-5.30) (4.00-5.30) (4.00-5.30) Mean Corpuscular Volume 103.7 FL 103.8 FL 105.1 FL (80.0-100.0) (80.0-100.0) (80.0-100.0) Mean Corpuscular Hemoglobin 35.0 PG 35.4 PG 35.1 PG (27.0-34.0) (27.0-34.0) (27.0-34.0) Platelet Count 135 TH/MM3 90 TH/MM3 71 TH/MM3 (150-450) (150-450) (150-450) Neutrophils (%) (Auto) 85.3 % (16.0-70.0) Lymphocytes (%) (Auto) 8.8 % (9.0-44.0) Lymphocytes # (Auto) 0.8 TH/MM3 0.9 TH/MM3 (1.0-4.8) (1.0-4.8) Chloride Level 112 MEQ/L 112 MEQ/L 113 MEQ/L (98-107) (98-107) (98-107) Estimat Glomerular Filtration 85 ML/MIN (>89) 88 ML/MIN (>89) Rate Calcium Level 7.8 MG/DL 7.8 MG/DL 7.9 MG/DL (8.5-10.1) (8.5-10.1) (8.5-10.1) Total Protein 6.3 GM/DL (6.4-8.2) Albumin 3.1 GM/DL (3.4-5.0) Hematocrit 34.0 % 32.5 % (35.0-46.0) (35.0-46.0) Hemoglobin 10.9 GM/DL (11.6-15.3) Monocytes (%) (Auto) 9.8 % (0.0-8.0) Platelet Estimate LOW (NORMAL) Vitamin B12 Level 1291 PG/ML (193-986) Test 08/04/16 08/04/16 08:30 08:31 Chloride Level 111 MEQ/L (98-107) Calcium Level 8.1 MG/DL (8.5-10.1) Red Blood Count 3.17 MIL/MM3 (4.00-5.30) Hemoglobin 11.4 GM/DL (11.6-15.3) Hematocrit 32.8 % (35.0-46.0) Mean Corpuscular Volume 103.7 FL (80.0-100.0) Mean Corpuscular Hemoglobin 36.1 PG (27.0-34.0) Platelet Count 89 TH/MM3 (150-450) Monocytes (%) (Auto) 12.8 % (0.0-8.0) Platelet Estimate LOW (NORMAL) Imaging Last Impressions Head CT 08/02/16 0600 Signed Impressions: Service Date/Time: Tuesday, August 02, 2016 04:45 - CONCLUSION: Stable CT appearance. Small left posterior parietal subdural hemorrhage including in between the leaves of the posterior falx and left tentorium unchanged. No midline shift. Bernardo Kiran MD Abdomen X-Ray 08/02/16 0600 Signed Impressions: Service Date/Time: Tuesday, August 02, 2016 04:40 - CONCLUSION: Benign-appearing abdomen. Nasogastric tube tip is in the upper stomach, sidehole above the GE junction. Bernardo Kiran MD Chest X-Ray 08/01/16 0000 Signed Impressions: Service Date/Time: Monday, August 01, 2016 16:33 - CONCLUSION: 1. No active disease. NG coiled in stomach. Antonino Triplett MD Hospital Course (1) Subdural hematoma Status: Acute Plan: - Pt was drinking etoh. had fall. left sdh. - CT (08/02/16) head shows stable sdh - NSX wrote for f/u in 1 week - rachael - thrombocytopenia, stabilized - repeat CBC outpt in one week (2) Thrombocytopenia Status: Acute Plan: - see above (3) Small bowel obstruction Status: Acute Plan: noted to have p.sbo with transition point. could be adhesion dz. - Resolved - pt is tolerating PO intake (4) Alcohol abuse, episodic Status: Acute Plan: see above - f/u with [facility] in 1-2 weeks after discharge (5) Afib Status: Resolved Plan: s/p ablation. - metoprolol (6) HTN (hypertension) Status: Chronic Plan: - lisinopril - metoprolol Pt Condition on Discharge: Stable Discharge Disposition: Discharge Home Discharge Instructions DIET: Follow Instructions for: Heart Healthy Diet Activities you can perform: Regular-No Restrictions Other Activity Instructions: f/u Head CT in 1 week at [place] imaging Follow up Referrals: Neurosurgery - 1 Week @ [facility] P[facility] Follow-up - [address] Griselda Luong Psychiatry Adult - 2 Weeks with [facility] New Orders: CT Brain W/O Contrast - 1 Week @ Outside [facility] [place] New Medications: Levetiracetam (Keppra) 500 Mg Tab 500 MG PO Q12HR PRN seizure prophylaxis #60 Ref 6 TAB Continued Medications: Lisinopril (Lisinopril) 2.5 Mg Tab 2.5 MG PO DAILY #30 Ref 0 TAB Metoprolol Tartrate (Metoprolol Tartrate) 25 Mg Tab 25 MG PO BID #60 Ref 0 TAB Venlafaxine (Effexor) 75 Mg Tab 75 MG PO Q12H #60 Ref 0 TAB Mumtaz Salcedo DO Aug 04, 2016 15:05
--- NOTE | 2016-08-04 15:07 | HHI.DCPOC ---
Discharge Care Plan Diagnosis: (1) Afib (2) HTN (hypertension) (3) Subdural hematoma (4) Thrombocytopenia (5) Fall (6) Small bowel obstruction (7) Head injury Goals to Promote Your Health * To prevent worsening of your condition and complications * To maintain your health at the optimal level Directions to Meet Your Goals Take your medications as prescribed Follow your dietary instruction Follow activity as directed Keep your appointments as scheduled Take your immunizations and boosters as scheduled If your symptoms worsen call your PCP, if no PCP go to Urgent Care Center or Emergency Room Smoking is Dangerous to Your Health. Avoid second hand smoke Call the 24-hour hour crisis hotline for domestic abuse at Mumtaz Salcedo DO Aug 04, 2016 15:07
[2016-08-13] MEDS ORDERED: ALPR.25 PO (11:10)
== END 2016-08-04 16:35 | disposition home or self-care (01) | DRG 83 ==
LOC: NEPE 16:05 → NEDA 16:24 → N03A 17:43 → N05A 08-02 17:14
PROVIDERS: ADMIT Internal Medicine Critical Care Medicine; ATTEND Internal Medicine Critical Care Medicine
DX: S06.5X9A Traumatic subdural hemorrhage with loss of consciousness of unspecified duration, initial encounter (principal); K56.69 Other intestinal obstruction; D69.6 Thrombocytopenia, unspecified; I48.91 Unspecified atrial fibrillation; R40.2410 Glasgow coma scale score 13-15, unspecified time; S00.01XA Abrasion of scalp, initial encounter; F10.10 Alcohol abuse, uncomplicated; I10 Essential (primary) hypertension; Z72.0 Tobacco use; W19.XXXA Unspecified fall, initial encounter; Y93.K1 Activity, walking an animal
CPT/HCPCS: 70450; 71010; 74020; 80048; 80053; 82607; 82948; 85025; 85027; 85610; 87641; 99285; C9113; J0360; J1170; J1953; J7030